=== PATIENT | male | born 1940 | race African-American/Black ===

== ENCOUNTER 2024-03-27 19:57 | Inpatient (IN) | payer MEDICARE, OTHER ==
[~2024-03-27] VITALS: Ht 182.9 cm; Wt 71.8 kg
[2024-03-27] MEDS ORDERED: ONDANSETRON HCL/PF 4 MG/2 ML VIAL ONE (20:45)
[2024-03-27 20:48] LABS: BASOPHILS % (AUTO) 0.3 % (0.0-2.0); HEMATOCRIT 37 % (39-51); HEMOGLOBIN 12.4 g/dL (13.5-17.5); LYMPHOCYTES # (AUTO) 0.2 K/uL (0.8-4.8); LYMPHOCYTES % (AUTO) 2.3 % (20.0-44.0); MEAN CORPUSCULAR HEMOGLOBIN 33 PG (26.0-33.0); MEAN CORPUSCULAR HGB CONC 33 g/dl (31.0-36.0); MEAN CORPUSCULAR VOLUME 99 fL (80-96); MONOCYTES # (AUTO) 0.3 K/uL (0.1-1.30); NEUTROPHILS # (AUTO) 6.2 K/uL (1.8-8.9); NEUTROPHILS % (AUTO) 92.4 % (43.0-81.0); PLATELET COUNT (AUTO) 180 K/uL (150-450); RED BLOOD CELL COUNT(AUTO) 3.77 MIL/uL (4.5-6.0); RED CELL DISTRIBUTION WIDTH 13.5 % (11.5-15.0); WHITE BLOOD COUNT (AUTO) 6.7 K/uL (4.3-11.0)
[2024-03-27] MEDS: IV NS 0.9% 1,000 ML BAG IV ONE (20:51)
[2024-03-27] MEDS: ONDANSETRON HCL/PF 4 MG/2 ML VIAL IVP ONE (20:51)
[2024-03-27 21:02] LABS: INR 1.5 (0.91-1.10); PARTIAL THROMBOPLASTIN TIME 29.1 SEC (24.3-34.3); PROTHROMBIN TIME 15.1 SECS (9.2-11.1)
[2024-03-27 21:05] LABS: ALANINE AMINOTRANSFERASE 20 U/L (12-78); ALBUMIN 2.9 g/dL (3.4-5.0); ALKALINE PHOSPHATASE 94 U/L (46-116); ASPARTATE AMINOTRANSFERASE 23 U/L (15-37); BILIRUBIN,DIRECT 0.2 mg/dL (0.0-0.2); BILIRUBIN,TOTAL 0.6 mg/dL (0.2-1.0); CALCIUM, SERUM 8.9 mg/dL (8.5-10.1); CARBON DIOXIDE 29 mmol/L (21-32); CHLORIDE 95 mmol/L (98-107); CREATININE 1.1 mg/dL (0.6-1.3); GLUCOSE 258 mg/dL (74-106); POTASSIUM 4.3 mmol/L (3.5-5.1); SODIUM SERUM 132 mmol/L (136-145); TOTAL PROTEIN, SERUM 7.5 g/dL (6.4-8.2); UREA NITROGEN, BLOOD 24 mg/dL (7-18)
[2024-03-27 21:09] LABS: LACTIC ACID 2.9 mmol/L (0.4-2.0)
[2024-03-27] MEDS ORDERED: PIPERACI/TAZO 3.375GM/D5W 50ML PB IV ONE (21:52)
[2024-03-27] MEDS: PIPERACILLIN /TAZOBACTAM 3.375 G in IV D5W 50 ML IV ONE (21:58)
[2024-03-27 22:11] LABS: APPEARANCE,URINE Cloudy (CLEAR); BILIRUBIN,URINE Negative (NEGATIVE); BLOOD, URINE Moderate Ery/uL (NEGATIVE); COLOR,URINE YELLOW (YELLOW); KETONES,URINE 15 mg/dL (NEGATIVE); LEUKOCYTE ESTERASE ,URINE Small (NEGATIVE); NITRITE, URINE Negative (NEGATIVE); PROTEIN,URINE 30 mg/dl (NEGATIVE); UGLUCOSE Negative (NEGATIVE)
[2024-03-27 22:38] LABS: ADD URINE CULTURE YES; BACTERIA,URINE Many /HPF (None Seen); SQUAMOUS EPITHELIAL CELL,UR Few /HPF (None Seen)
[2024-03-28] MEDS ORDERED: ACETAMINOPHEN 325 MG TABLET PO PRN
[2024-03-28] MEDS ORDERED: MAG HYDROX/AL HYDROX/SIMETH 30 ML UDC PO PRN
[2024-03-28] MEDS ORDERED: ONDANSETRON HCL/PF 4 MG/2 ML VIAL IVP PRN
[2024-03-28] MEDS ORDERED: DEXTROSE 50%-WATER 50 ML DISP.SYRIN IV PRN
[2024-03-28] MEDS ORDERED: MAGNESIUM HYDROXIDE 30 ML UDC PO PRN
[2024-03-28] MEDS ORDERED: Z GUARD REMEDY 4 OZ OINT TP PRN
[2024-03-28 00:55] VITALS: BP 118/65; TEMP 99.3; O2SAT 96
[2024-03-28] MEDS: PANTOPRAZOLE 40 MG VIAL IV SCH (01:25)
[2024-03-28] MEDS: ENOXAPARIN SODIUM 30 MG/0.3 ML DISP.SYRIN SQ SCH (01:25)
[2024-03-28] MEDS: BLOOD SUGAR DIAGNOSTIC 1 EACH STRIP IN SCH (01:35)
[2024-03-28] MEDS: INSULIN REGULAR, HUMAN 100 UNIT/ML 3 ML VIAL SQ PRN (01:36)
[2024-03-28 04:00] VITALS: BP 100/58; TEMP 98.7; O2SAT 98
[2024-03-28] MEDS ORDERED: PIPERACILLIN /TAZOBACTAM 3.375 G in IV D5W 50 ML IV SCH (05:00)
[2024-03-28] MEDS ORDERED: PIPERACI/TAZO 3.375GM/D5W 50ML PB IV ONE (05:13)
[2024-03-28] MEDS: PIPERACILLIN /TAZOBACTAM 3.375 G in IV D5W 50 ML IV SCH (05:14)
[2024-03-28] MEDS: IV NS 0.9% 1,000 ML IV PRN (07:03)
[2024-03-28 08:00] VITALS: BP 127/84; TEMP 98.4; O2SAT 97
[2024-03-28] MEDS ORDERED: NA P133E RC (08:02)
[2024-03-28] MEDS ORDERED: METF-440 GT (08:02)
[2024-03-28] MEDS ORDERED: MAGN400O6 GT (08:02)
[2024-03-28] MEDS ORDERED: CRAN3875 GT (08:02)
[2024-03-28] MEDS ORDERED: ATOR40TA GT (08:02)
[2024-03-28] MEDS ORDERED: BISA10SU11 RC (08:02)
[2024-03-28] MEDS ORDERED: APIX5TAB GT (08:02)
[2024-03-28] MEDS ORDERED: DOCU100C36 GT (08:02)
[2024-03-28] MEDS ORDERED: NUT.237L30 GT (08:02)
[2024-03-28] MEDS ORDERED: ACET325T53 GT (08:02)
[2024-03-28] MEDS ORDERED: DILT30TA2 GT (08:02)
[2024-03-28 08:17] LABS: HEMOGLOBIN 12.5 g/dL (13.5-17.5); LYMPHOCYTES # (AUTO) 0.6 K/uL (0.8-4.8); MEAN CORPUSCULAR VOLUME 100 fL (80-96)
[2024-03-28 08:23] LABS: BASOPHILS % (AUTO) 0.2 % (0.0-2.0); EOSINOPHILS % (AUTO) 0.1 % (0.0-6.0); HEMATOCRIT 39 % (39-51); LYMPHOCYTES % (AUTO) 7.1 % (20.0-44.0); MEAN CORPUSCULAR HEMOGLOBIN 33 PG (26.0-33.0); MEAN CORPUSCULAR HGB CONC 33 g/dl (31.0-36.0); MONOCYTES # (AUTO) 0.4 K/uL (0.1-1.30); MONOCYTES % (AUTO) 4.3 % (2.0-12.0); NEUTROPHILS # (AUTO) 7.5 K/uL (1.8-8.9); NEUTROPHILS % (AUTO) 88.3 % (43.0-81.0); PLATELET COUNT (AUTO) 142 K/uL (150-450); RED BLOOD CELL COUNT(AUTO) 3.84 MIL/uL (4.5-6.0); RED CELL DISTRIBUTION WIDTH 13.7 % (11.5-15.0); WHITE BLOOD COUNT (AUTO) 8.5 K/uL (4.3-11.0)
[2024-03-28 08:33] LABS: CALCIUM, SERUM 8.5 mg/dL (8.5-10.1); CARBON DIOXIDE 24 mmol/L (21-32); CHLORIDE 99 mmol/L (98-107); CREATININE 0.8 mg/dL (0.6-1.3); GLUCOSE 169 mg/dL (74-106); MAGNESIUM 1.8 mg/dL (1.8-2.4); PHOSPHORUS 3.3 mg/dL (2.5-4.9); POTASSIUM 4.7 mmol/L (3.5-5.1); SODIUM SERUM 135 mmol/L (136-145); UREA NITROGEN, BLOOD 23 mg/dL (7-18)
[2024-03-28 08:36] LABS: HDL CHOLESTEROL 54 mg/dL (40-60); LDL 29 mg/dL (0-99); TRIGLYCERIDES 41 mg/dL (30-150)
[2024-03-28 09:12] LABS: THYROID STIMULATING HORMONE 0.42 uIU/mL (0.358-3.74)
[2024-03-28 09:29] LABS: CHOLESTEROL 83 mg/dL (<200)
[2024-03-28] MEDS: PIPERACILLIN /TAZOBACTAM 3.375 G in IV D5W 100 ML IV SCH (09:29)
[2024-03-28] MEDS: GLUCERNA 1.2 1,000 ML BOTTLE NG PRN (09:58)
[2024-03-28] MEDS: DOCUSATE SODIUM 100 MG CAPSULE PO SCH (10:01)
[2024-03-28] MEDS: APIXABAN 5 MG TABLET GT SCH (10:01)
[2024-03-28] MEDS: DILTIAZEM HCL 30 MG TABLET GT SCH (10:01)
[2024-03-28 12:00] VITALS: BP 102/64; TEMP 97.8; O2SAT 95
[2024-03-28 16:00] VITALS: BP 102/68; TEMP 97.7; O2SAT 97
[2024-03-28] MEDS: DOCUSATE SODIUM LIQ 100 MG/10 ML UDC GT SCH (16:17)
[2024-03-28 20:00] VITALS: BP 106/65; TEMP 97.9; O2SAT 95
[2024-03-28] MEDS ORDERED: ENOXAPARIN SODIUM 40 MG/0.4 ML DISP.SYRIN SQ SCH (21:00)
[2024-03-28] MEDS: ATORVASTATIN 40 MG TABLET GT SCH (22:00)
[2024-03-29] VITALS: BP 108/71; TEMP 98.2; O2SAT 97
[2024-03-29 04:00] VITALS: BP 128/76; TEMP 98.6; O2SAT 97
[2024-03-29 07:35] LABS: BASOPHILS % (AUTO) 0.1 % (0.0-2.0); HEMATOCRIT 35 % (39-51); HEMOGLOBIN 11.7 g/dL (13.5-17.5); LYMPHOCYTES # (AUTO) 0.5 K/uL (0.8-4.8); LYMPHOCYTES % (AUTO) 6.3 % (20.0-44.0); MEAN CORPUSCULAR HEMOGLOBIN 33 PG (26.0-33.0); MEAN CORPUSCULAR HGB CONC 33 g/dl (31.0-36.0); MEAN CORPUSCULAR VOLUME 97 fL (80-96); MONOCYTES # (AUTO) 0.2 K/uL (0.1-1.30); MONOCYTES % (AUTO) 2.7 % (2.0-12.0); NEUTROPHILS # (AUTO) 7.2 K/uL (1.8-8.9); NEUTROPHILS % (AUTO) 90.9 % (43.0-81.0); PLATELET COUNT (AUTO) 146 K/uL (150-450); RED BLOOD CELL COUNT(AUTO) 3.61 MIL/uL (4.5-6.0); RED CELL DISTRIBUTION WIDTH 13.5 % (11.5-15.0); WHITE BLOOD COUNT (AUTO) 7.9 K/uL (4.3-11.0)
[2024-03-29 08:00] VITALS: BP 126/80; TEMP 98.5; O2SAT 95
[2024-03-29 08:11] LABS: CALCIUM, SERUM 8.7 mg/dL (8.5-10.1); CARBON DIOXIDE 32 mmol/L (21-32); CHLORIDE 101 mmol/L (98-107); CREATININE 0.9 mg/dL (0.6-1.3); GLUCOSE 172 mg/dL (74-106); MAGNESIUM 1.6 mg/dL (1.8-2.4); PHOSPHORUS 2.4 mg/dL (2.5-4.9); POTASSIUM 4.3 mmol/L (3.5-5.1); SODIUM SERUM 138 mmol/L (136-145); UREA NITROGEN, BLOOD 22 mg/dL (7-18)
[2024-03-29 08:24] LABS: URIC ACID 1.3 mg/dL (2.6-7.2)
[2024-03-29] MEDS: DILTIAZEM HCL 30 MG TABLET GT SCH (09:49)
[2024-03-29 12:00] VITALS: BP 108/70; TEMP 97.7; O2SAT 95
[2024-03-29 12:08] LABS: FOLIC ACID 14.9 ng/mL (>3.0)
[2024-03-29] MEDS: MAGNESIUM OXIDE 400 MG TABLET GT ONE (14:11)
[2024-03-29 16:00] VITALS: BP 105/63; TEMP 97.8; O2SAT 96
[2024-03-29] MEDS: NEUTRA PHOS 1 POWD.PACKET GT ONE (16:42)
[2024-03-29 20:00] VITALS: BP 101/66; TEMP 98.2; O2SAT 97
[2024-03-30] VITALS: BP 110/71; TEMP 98.4; O2SAT 97
[2024-03-30 04:00] VITALS: BP 111/67; TEMP 98.8; O2SAT 96
[2024-03-30 08:00] VITALS: BP 123/68; TEMP 98.8; O2SAT 96
[2024-03-30] MEDS: PANTOPRAZOLE 40 MG/PACK PACK GT SCH (09:22)
[2024-03-30 16:00] VITALS: BP 112/73; TEMP 98.6; O2SAT 96
[2024-03-30 20:00] VITALS: BP 107/64; TEMP 97.9; O2SAT 97
[2024-03-31] VITALS: BP 118/73; TEMP 98.2; O2SAT 95
[2024-03-31 04:00] VITALS: BP 135/83; TEMP 98.7; O2SAT 94
[2024-03-31 08:00] VITALS: BP 127/96; TEMP 98.1; O2SAT 96
[2024-03-31] MEDS: METRONIDAZOLE 500 MG TABLET PO SCH (13:19)
[2024-03-31 16:00] VITALS: BP 122/63; TEMP 97.9; O2SAT 97
[2024-03-31 18:15] LABS: BASOPHILS % (AUTO) 0.2 % (0.0-2.0); EOSINOPHILS % (AUTO) 0.4 % (0.0-6.0); HEMATOCRIT 31 % (39-51); HEMOGLOBIN 10.6 g/dL (13.5-17.5); LYMPHOCYTES # (AUTO) 0.6 K/uL (0.8-4.8); LYMPHOCYTES % (AUTO) 16.5 % (20.0-44.0); MEAN CORPUSCULAR HEMOGLOBIN 32 PG (26.0-33.0); MEAN CORPUSCULAR HGB CONC 34 g/dl (31.0-36.0); MEAN CORPUSCULAR VOLUME 96 fL (80-96); MONOCYTES # (AUTO) 0.2 K/uL (0.1-1.30); MONOCYTES % (AUTO) 5.9 % (2.0-12.0); NEUTROPHILS # (AUTO) 2.8 K/uL (1.8-8.9); PLATELET COUNT (AUTO) 133 K/uL (150-450); RED BLOOD CELL COUNT(AUTO) 3.26 MIL/uL (4.5-6.0); RED CELL DISTRIBUTION WIDTH 13.7 % (11.5-15.0); WHITE BLOOD COUNT (AUTO) 3.6 K/uL (4.3-11.0)
[2024-03-31 18:41] LABS: CARBON DIOXIDE 30 mmol/L (21-32); CHLORIDE 100 mmol/L (98-107); CREATININE 0.6 mg/dL (0.6-1.3); GLUCOSE 237 mg/dL (74-106); POTASSIUM 3.5 mmol/L (3.5-5.1); SODIUM SERUM 137 mmol/L (136-145); UREA NITROGEN, BLOOD 13 mg/dL (7-18)
[2024-03-31] MEDS: DOXYCYCLINE HYCLATE (100 MG) 100 MG TABLET PO SCH (21:09)
[2024-04-01] VITALS: BP 127/75; TEMP 97.9
[2024-04-01 06:47] LABS: BASOPHILS % (AUTO) 0.2 % (0.0-2.0); EOSINOPHILS % (AUTO) 0.4 % (0.0-6.0); HEMATOCRIT 33 % (39-51); LYMPHOCYTES # (AUTO) 0.7 K/uL (0.8-4.8); LYMPHOCYTES % (AUTO) 20.6 % (20.0-44.0); MEAN CORPUSCULAR HEMOGLOBIN 33 PG (26.0-33.0); MEAN CORPUSCULAR HGB CONC 33 g/dl (31.0-36.0); MEAN CORPUSCULAR VOLUME 97 fL (80-96); MONOCYTES # (AUTO) 0.3 K/uL (0.1-1.30); MONOCYTES % (AUTO) 7.4 % (2.0-12.0); NEUTROPHILS # (AUTO) 2.6 K/uL (1.8-8.9); NEUTROPHILS % (AUTO) 71.4 % (43.0-81.0); PLATELET COUNT (AUTO) 152 K/uL (150-450); RED CELL DISTRIBUTION WIDTH 13.6 % (11.5-15.0); WHITE BLOOD COUNT (AUTO) 3.6 K/uL (4.3-11.0)
[2024-04-01 07:01] LABS: CALCIUM, SERUM 7.7 mg/dL (8.5-10.1); CARBON DIOXIDE 33 mmol/L (21-32); CHLORIDE 100 mmol/L (98-107); CREATININE 0.6 mg/dL (0.6-1.3); GLUCOSE 188 mg/dL (74-106); POTASSIUM 3.4 mmol/L (3.5-5.1); SODIUM SERUM 137 mmol/L (136-145); UREA NITROGEN, BLOOD 10 mg/dL (7-18)
[2024-04-01 08:40] VITALS: BP 133/84; TEMP 98.6; O2SAT 96
[2024-04-01] MEDS: POTASSIUM CHLORIDE 20 MEQ POWDER PACKET NG SCH (10:52)
[2024-04-01] MEDS ORDERED: DILT30TA14 GT (12:02)
[2024-04-01] MEDS ORDERED: DOXY100T2 PO (12:02)
[2024-04-01] MEDS ORDERED: METR500T PO (12:02)
[2024-04-01 12:44] VITALS: BP 133/84
== END 2024-04-01 15:31 | DRG 871 ==
LOC: ER 20:06 → TELE1 03-28 00:20 → MEDSG1 03-30 09:29 → TELE1 03-30 12:43 → MEDSG1 03-30 23:31
PROVIDERS: ADMIT Nurse Practitioner Acute Care; ATTEND Internal Medicine
DX: A41.9 Sepsis, unspecified organism (principal); G93.41 Metabolic encephalopathy; J15.69 Pneumonia due to other Gram-negative bacteria; J69.0 Pneumonitis due to inhalation of food and vomit; E87.20 Acidosis, unspecified; E87.1 Hypo-osmolality and hyponatremia; N17.9 Acute kidney failure, unspecified; N39.0 Urinary tract infection, site not specified; D63.8 Anemia in other chronic diseases classified elsewhere; I25.10 Atherosclerotic heart disease of native coronary artery without angina pectoris; R65.20 Severe sepsis without septic shock; E11.9 Type 2 diabetes mellitus without complications; I10 Essential (primary) hypertension; I48.91 Unspecified atrial fibrillation; E78.5 Hyperlipidemia, unspecified; Z86.73 Personal history of transient ischemic attack (TIA), and cerebral infarction without residual deficits; F01.50 Vascular dementia, unspecified severity, without behavioral disturbance, psychotic disturbance, mood disturbance, and anxiety; M89.8X9 Other specified disorders of bone, unspecified site; B96.89 Other specified bacterial agents as the cause of diseases classified elsewhere; Y95 Nosocomial condition; Z79.01 Long term (current) use of anticoagulants
CPT/HCPCS: 36415; 70450-TC; 71045-TC; 71250-TC; 80048-TC; 80061-TC; 80076-TC; 81001; 82607-TC; 82962-TC; 83605-TC; 83735-TC; 83921; 84100-TC; 84425; 84443-TC; 84484-TC; 84550-TC; 85025-TC; 85730-TC; 87040-TC; 87081-TC; 87086-TC; 92526; 92611-TC; 93307-TC; 97110-TC; 97116-TC; 97530-TC; A4223; G0378; J1650; J1815; J2405; J2470; J2543; J7030; J7050; J7060

== ENCOUNTER 2024-07-01 00:32 | Emergency (ER) | payer MEDICARE, OTHER ==
[~2024-07-01] VITALS: Ht 188 cm; Wt 74.8 kg
[~2024-07-01 00:32] MED LIST: ACET325T53 GT; APIX5TAB GT; ATOR40TA GT; BISA10SU11 RC; CRAN3875 GT; DILT30TA14 GT; DOCU100C36 GT; DOXY100T2 PO; MAGN400O6 GT; METF-440 GT; METR500T PO; NA P133E RC; NUT.237L30 GT
[2024-07-01 00:49] VITALS: TEMP 98.8
[2024-07-01 01:25] LABS: BASOPHILS % (AUTO) 0.3 % (0.0-2.0); EOSINOPHILS # (AUTO) 0.3 K/uL (0.0-0.7); EOSINOPHILS % (AUTO) 6.1 % (0.0-6.0); HEMATOCRIT 37 % (39-51); HEMOGLOBIN 12.2 g/dL (13.5-17.5); LYMPHOCYTES # (AUTO) 1.3 K/uL (0.8-4.8); LYMPHOCYTES % (AUTO) 26.5 % (20.0-44.0); MEAN CORPUSCULAR HEMOGLOBIN 32 PG (26.0-33.0); MEAN CORPUSCULAR HGB CONC 33 g/dl (31.0-36.0); MEAN CORPUSCULAR VOLUME 96 fL (80-96); MONOCYTES # (AUTO) 0.4 K/uL (0.1-1.30); NEUTROPHILS % (AUTO) 60.1 % (43.0-81.0); PLATELET COUNT (AUTO) 193 K/uL (150-450); RED BLOOD CELL COUNT(AUTO) 3.81 MIL/uL (4.5-6.0); RED CELL DISTRIBUTION WIDTH 16.3 % (11.5-15.0)
[2024-07-01 01:35] LABS: CALCIUM, SERUM 8.8 mg/dL (8.5-10.1); CARBON DIOXIDE 35 mmol/L (21-32); CHLORIDE 99 mmol/L (98-107); CREATININE 0.6 mg/dL (0.6-1.3); GLUCOSE 119 mg/dL (74-106); POTASSIUM 4.1 mmol/L (3.5-5.1); SODIUM SERUM 136 mmol/L (136-145); UREA NITROGEN, BLOOD 22 mg/dL (7-18)
[2024-07-01 01:43] LABS: INR 1.32 (0.91-1.10); PARTIAL THROMBOPLASTIN TIME 31.3 SEC (24.3-34.3); PROTHROMBIN TIME 13.7 SECS (9.2-11.1)
[2024-07-01 01:48] LABS: ALANINE AMINOTRANSFERASE 23 U/L (12-78); ALBUMIN 2.8 g/dL (3.4-5.0); ALKALINE PHOSPHATASE 111 U/L (46-116); ASPARTATE AMINOTRANSFERASE 21 U/L (15-37); BILIRUBIN,TOTAL 0.6 mg/dL (0.2-1.0); NT-PRO BNP 601 pg/mL (0-125); TOTAL PROTEIN, SERUM 6.8 g/dL (6.4-8.2)
[2024-07-01 03:19] LABS: APPEARANCE,URINE CLEAR (CLEAR); BILIRUBIN,URINE NEGATIVE (NEGATIVE); BLOOD, URINE NEGATIVE Ery/uL (NEGATIVE); COLOR,URINE YELLOW (YELLOW); KETONES,URINE NEGATIVE (NEGATIVE); LEUKOCYTE ESTERASE ,URINE NEGATIVE (NEGATIVE); NITRITE, URINE POSITIVE (NEGATIVE); PROTEIN,URINE NEGATIVE (NEGATIVE); UGLUCOSE NEGATIVE (NEGATIVE)
[2024-07-01] MEDS ORDERED: Z GUARD REMEDY 4 OZ OINT TP PRN (04:30)
[2024-07-01] MEDS ORDERED: ACETAMINOPHEN 325 MG TABLET PO PRN (04:30)
[2024-07-01] MEDS ORDERED: ONDANSETRON HCL/PF 4 MG/2 ML VIAL IVP PRN (04:30)
[2024-07-01 04:42] LABS: RBC,URINE NONE SEEN /HPF (0-2)
[2024-07-01 04:43] LABS: ADD URINE CULTURE YES; BACTERIA,URINE Many /HPF (None Seen); SQUAMOUS EPITHELIAL CELL,UR Rare /HPF (None Seen); WBC,URINE 0-2 /HPF (0-3)
[2024-07-01] MEDS ORDERED: PANTOPRAZOLE 40 MG VIAL ONE (08:31)
[2024-07-01] MEDS: PANTOPRAZOLE 40 MG VIAL IV SCH (08:38)
[2024-07-01] MEDS: IV NS 0.9% 1,000 ML IV PRN (08:38)
[2024-07-01] MEDS ORDERED: ACET325T53 GT (08:49)
[2024-07-01] MEDS ORDERED: DILT30TA2 GT (08:49)
[2024-07-01] MEDS ORDERED: MULT-213 GT (08:49)
[2024-07-01] MEDS ORDERED: AMIN30LI66 GT (08:49)
[2024-07-01] MEDS ORDERED: TRAM50TA2 GT (08:49)
[2024-07-01] MEDS ORDERED: ASCO500T10 GT (08:49)
[2024-07-01] MEDS ORDERED: IBUP-1955 GT (08:49)
[2024-07-01 16:00] VITALS: BP 133/78; O2SAT 96
== END 2024-07-01 17:05 | disposition short-term general hospital (02) ==
LOC: ER 00:36 → UNDOADMIN 05:22 → TRANSITION 05:22
DX: K92.2 Gastrointestinal hemorrhage, unspecified (principal); E11.9 Type 2 diabetes mellitus without complications; E78.5 Hyperlipidemia, unspecified; F03.90 Unspecified dementia, unspecified severity, without behavioral disturbance, psychotic disturbance, mood disturbance, and anxiety; I10 Essential (primary) hypertension; I48.91 Unspecified atrial fibrillation
CPT/HCPCS: 99285; 74176; 96374; 71045; 96361; 93005; 85025; 85610; 85730; 81001; 36415; 80053; 84484; 83880; 85027; J7030; J2470; A4223; G0378; J2405

== ENCOUNTER 2024-12-20 04:13 | Inpatient (IN) | payer MEDICARE, OTHER ==
[~2024-12-20] VITALS: Ht 193 cm; Wt 70.4 kg
[~2024-12-20 04:13] MED LIST changes: +AMIN30LI66 GT; -APIX5TAB GT; +ASCO500T10 GT; -DILT30TA14 GT; +DILT30TA2 GT; -DOXY100T2 PO; +IBUP-1955 GT; -METR500T PO; +MULT-213 GT; +TRAM50TA2 GT
[2024-12-20 04:35] VITALS: O2SAT 94
[2024-12-20] MEDS ORDERED: AZITHROMYCIN 500 MG VIAL ONE (04:37)
[2024-12-20] MEDS ORDERED: VANCOMYCIN 1 GM /D5W 250 ML PB IV ONE (04:38)
[2024-12-20] MEDS ORDERED: PIPERACI/TAZO 3.375GM/D5W 50ML PB IV ONE (04:38)
[2024-12-20] MEDS: PIPERACILLIN /TAZOBACTAM 3.375 G in IV D5W 50 ML IV ONE (04:41)
[2024-12-20] MEDS: IV NS 0.9% 1,000 ML BAG IV ONE (04:52)
[2024-12-20 05:09] LABS: PLATELET COUNT (AUTO) 263 K/uL (150-450); RED BLOOD CELL COUNT(AUTO) 4.26 MIL/uL (4.5-6.0); RED CELL DISTRIBUTION WIDTH 15.9 % (11.5-15.0); WHITE BLOOD COUNT (AUTO) 5.1 K/uL (4.3-11.0)
[2024-12-20] MEDS: AZITHROMYCIN 500 MG in IV D5W 250 ML IV ONE (05:10)
[2024-12-20 05:17] LABS: INR 1.31 (0.91-1.10)
[2024-12-20 05:31] LABS: APPEARANCE,URINE CLEAR (CLEAR); BLOOD, URINE TRACE-INTA Ery/uL (NEGATIVE); LEUKOCYTE ESTERASE ,URINE NEGATIVE (NEGATIVE); NITRITE, URINE NEGATIVE (NEGATIVE); UGLUCOSE NEGATIVE (NEGATIVE)
[2024-12-20 05:55] LABS: LACTIC ACID 6.5 mmol/L (0.4-2.0)
[2024-12-20 05:55] LABS: ABG BASE EXCESS -2.3 mmol/L (-2.0-3.0); ABG OXYGEN SATURATION 94.7 % (94.0-98.0); ABG PCO2 41.2 mmHg (35.0-48.0); ABG PH 7.364 (7.350-7.450); ABG PO2 81.7 mmHg (83.0-108.0); ABG TOTAL HEMOGLOBIN 12.0 G/dL (13.5-17.5); FLOW, BLOOD GAS 15.00 L/min (0.00-30.00); SITE, ABG LEFT RADIAL
[2024-12-20] MEDS ORDERED: ONDANSETRON HCL/PF 4 MG/2 ML VIAL IVP PRN (06:00)
[2024-12-20] MEDS ORDERED: MAG HYDROX/AL HYDROX/SIMETH 30 ML UDC PO PRN (06:00)
[2024-12-20] MEDS ORDERED: Z GUARD REMEDY 4 OZ OINT TP PRN (06:00)
[2024-12-20] MEDS ORDERED: ACETAMINOPHEN 325 MG TABLET PO PRN (06:00)
[2024-12-20] MEDS ORDERED: MAGNESIUM HYDROXIDE 30 ML UDC PO PRN (06:00)
[2024-12-20 06:05] LABS: CALCIUM, SERUM 9.2 mg/dL (8.5-10.1); CREATININE 1.0 mg/dL (0.6-1.3); SODIUM SERUM 141 mmol/L (136-145); UREA NITROGEN, BLOOD 41 mg/dL (7-18)
[2024-12-20 06:11] LABS: ASPARTATE AMINOTRANSFERASE 38 U/L (15-37); TOTAL PROTEIN, SERUM 7.8 g/dL (6.4-8.2)
[2024-12-20 06:14] LABS: ADD URINE CULTURE NO; SQUAMOUS EPITHELIAL CELL,UR Few /HPF (None Seen)
[2024-12-20] MEDS: VANCOMYCIN 1 GM in IV D5W 250 ML IV ONE (06:15)
[2024-12-20] MEDS ORDERED: APIX5TAB4 GT (06:18)
[2024-12-20] MEDS ORDERED: PANT40TA49 PO (06:18)
[2024-12-20] MEDS ORDERED: ZINC1CAP2 PO (06:18)
[2024-12-20] MEDS ORDERED: GABA-532 PO (06:18)
[2024-12-20] MEDS ORDERED: DILTIAZEM HCL 30 MG TABLET ONE ×2 (06:29→10:13)
[2024-12-20] MEDS ORDERED: DEXTROSE 50%-WATER 50 ML DISP.SYRIN IV PRN (06:30)
[2024-12-20] MEDS ORDERED: BISACODYL SUPP (10 MG) 10 MG/SUPP.RECT SUPP.RECT RC PRN (06:30)
[2024-12-20] MEDS ORDERED: DOSING PER PHARMACY-VANCOMYCIN IV XX PRN (06:30)
[2024-12-20] MEDS: DILTIAZEM HCL 30 MG TABLET GT SCH (06:40)
[2024-12-20] MEDS: BLOOD SUGAR DIAGNOSTIC 1 EACH STRIP IN SCH (08:30)
[2024-12-20] MEDS: PROSOURCE / PROSTAT (PYXIS) 30 ML UDC GT SCH (09:00)
[2024-12-20] MEDS: DOCUSATE SODIUM 100 MG CAPSULE PO SCH (09:00)
[2024-12-20] MEDS ORDERED: MULTIVITAMINS,THERAGRAN 1 UDTAB TABLET ONE (10:12)
[2024-12-20] MEDS ORDERED: GABAPENTIN 100 MG CAPSULE ONE (10:13)
[2024-12-20] MEDS ORDERED: APIXABAN 5 MG TABLET ONE (10:13)
[2024-12-20] MEDS: MULTIVIT W/MINERALS 1 TAB TABLET GT SCH (10:15)
[2024-12-20] MEDS: GABAPENTIN 100 MG CAPSULE PO SCH (10:20)
[2024-12-20] MEDS: APIXABAN 5 MG TABLET GT SCH (10:20)
[2024-12-20] MEDS: VANCOMYCIN 750 MG in IV D5W 250 ML IV SCH (10:25)
[2024-12-20] MEDS: PIPERACILLIN /TAZOBACTAM 3.375 G in IV D5W 100 ML IV SCH (11:30)
[2024-12-20] MEDS ORDERED: PIPERACILLIN /TAZOBACTAM 3.375 G in IV D5W 50 ML IV SCH (13:00)
[2024-12-20 16:00] VITALS: BP 104/76; TEMP 98.6
[2024-12-20] MEDS: INSULIN REGULAR, HUMAN 100 UNIT/ML 3 ML VIAL SQ PRN (16:54)
[2024-12-20] MEDS: ASCORBIC ACID 500 MG TABLET GT SCH (17:09)
[2024-12-20] MEDS: ZINC SULFATE 220 MG CAPSULE PO SCH (17:09)
[2024-12-20] MEDS ORDERED: PROSOURCE / PROSTAT (PYXIS) 30 ML UDC GT SCH (18:00)
[2024-12-20] MEDS: GLUCERNA 1.2 1,000 ML BOTTLE NG PRN (18:32)
[2024-12-20 20:00] VITALS: BP 96/65; TEMP 98.6; O2SAT 97
[2024-12-20] MEDS: ATORVASTATIN 40 MG TABLET GT SCH (22:39)
[2024-12-21] VITALS: BP 108/72; TEMP 97.7; O2SAT 97
[2024-12-21 04:00] VITALS: BP 112/75; TEMP 97.8; O2SAT 98
[2024-12-21 08:00] VITALS: BP 92/61; TEMP 98; O2SAT 100
[2024-12-21 08:01] LABS: CALCIUM, SERUM 9.0 mg/dL (8.5-10.1); CREATININE 0.8 mg/dL (0.6-1.3); PHOSPHORUS 2.8 mg/dL (2.5-4.9); SODIUM SERUM 142.0 mmol/L (136-145); UREA NITROGEN, BLOOD 39.0 mg/dL (7-18)
[2024-12-21 08:05] LABS: PLATELET COUNT (AUTO) 195 K/uL (150-450); RED BLOOD CELL COUNT(AUTO) 3.52 MIL/uL (4.5-6.0); RED CELL DISTRIBUTION WIDTH 16.3 % (11.5-15.0); WHITE BLOOD COUNT (AUTO) 8.9 K/uL (4.3-11.0)
[2024-12-21] MEDS: AZITHROMYCIN 500 MG in IV D5W 250 ML IV SCH (09:15)
[2024-12-21 09:16] LABS: LYMPHOCYTES % (MANUAL) 9 % (16-48); MONOCYTES % (MANUAL) 4 % (0-11.0); NEUTROPHILS % (MANUAL) 87 (42-76); PLATELET ESTIMATE ADEQUATE
[2024-12-21 12:00] VITALS: BP 107/55; TEMP 98.1; O2SAT 100
[2024-12-21] MEDS: DIGOXIN INJ 0.5 MG/2 ML AMPUL IV SCH (13:01)
[2024-12-21 16:00] VITALS: BP 101/66; TEMP 98.5; O2SAT 100
[2024-12-21] MEDS: DOXYCYCLINE 100 MG in IV D5W 100 ML IV SCH (21:20)
[2024-12-21] MEDS: PERMETHRIN 5% CRM 60 GM TUBE TP ONE (21:22)
[2024-12-21] MEDS: IVERMECTIN 3 MG TABLET PO ONE (21:23)
[2024-12-21] MEDS: TRIAMCINOLONE ACETONIDE 0.1% CR 15 GM TUBE TP SCH (21:23)
[2024-12-21 22:00] VITALS: BP 102/66; TEMP 98.2; O2SAT 98
[2024-12-22] VITALS: BP 103/66; TEMP 98.5; O2SAT 98
[2024-12-22 04:00] VITALS: BP 100/66; TEMP 98.2; O2SAT 98
[2024-12-22] MEDS: MEROPENEM 1 G in IV NS 0.9% 100 ML IV SCH (05:30)
[2024-12-22 07:13] LABS: PLATELET COUNT (AUTO) 190 K/uL (150-450); RED BLOOD CELL COUNT(AUTO) 3.49 MIL/uL (4.5-6.0); RED CELL DISTRIBUTION WIDTH 15.4 % (11.5-15.0); WHITE BLOOD COUNT (AUTO) 9.0 K/uL (4.3-11.0)
[2024-12-22 07:19] LABS: CALCIUM, SERUM 9.5 mg/dL (8.5-10.1); CREATININE 0.7 mg/dL (0.6-1.3); PHOSPHORUS 2.4 mg/dL (2.5-4.9); SODIUM SERUM 145.0 mmol/L (136-145); UREA NITROGEN, BLOOD 28.0 mg/dL (7-18)
[2024-12-22 08:00] VITALS: BP 117/72; TEMP 98.1; O2SAT 100
[2024-12-22] MEDS: LORATADINE 10 MG TABLET PO SCH (08:54)
[2024-12-22] MEDS: POTASSIUM CHLORIDE 20 MEQ POWDER PACKET NG SCH (10:00)
[2024-12-22 12:00] VITALS: BP 114/66; TEMP 98.2; O2SAT 100
[2024-12-22 16:00] VITALS: BP 125/88; TEMP 97.9; O2SAT 98
[2024-12-22] MEDS: NEUTRA PHOS 1 POWD.PACKET NG ONE (16:14)
[2024-12-22 20:00] VITALS: BP 109/84; TEMP 98.4; O2SAT 99
[2024-12-23] VITALS: BP 99/61; TEMP 98.2; O2SAT 98
[2024-12-23 04:00] VITALS: BP 111/64; TEMP 97.7; O2SAT 100
[2024-12-23 06:42] LABS: PLATELET COUNT (AUTO) 174 K/uL (150-450); RED BLOOD CELL COUNT(AUTO) 3.46 MIL/uL (4.5-6.0); RED CELL DISTRIBUTION WIDTH 15.6 % (11.5-15.0); WHITE BLOOD COUNT (AUTO) 8.3 K/uL (4.3-11.0)
[2024-12-23 08:00] VITALS: BP 102/71; TEMP 98.6; O2SAT 98
[2024-12-23 08:06] LABS: CALCIUM, SERUM 9.6 mg/dL (8.5-10.1); CREATININE 0.7 mg/dL (0.6-1.3); PHOSPHORUS 3.1 mg/dL (2.5-4.9); SODIUM SERUM 146.0 mmol/L (136-145); UREA NITROGEN, BLOOD 28.0 mg/dL (7-18)
[2024-12-23] MEDS ORDERED: Magnesium 1GM/D5W 100ML PREMIX 100 ML IV SCH (09:30)
[2024-12-23] MEDS ORDERED: MAGNESIUM OXIDE 400 MG TABLET NG ONE (10:00)
[2024-12-23] MEDS: Magnesium 1GM/D5W 100ML PREMIX 100 ML IV SCH (10:51)
[2024-12-23 12:00] VITALS: BP 100/55; TEMP 98.1; O2SAT 99
[2024-12-23 16:00] VITALS: BP 102/60; TEMP 98.4; O2SAT 99
[2024-12-23 20:00] VITALS: BP 103/64; TEMP 98.8; O2SAT 98
[2024-12-23] MEDS: DOXYCYCLINE HYCLATE (100 MG) 100 MG TABLET GT SCH (21:37)
[2024-12-24] VITALS: BP 110/74; TEMP 98.6; O2SAT 97
[2024-12-24 04:00] VITALS: BP 110/72; TEMP 98.1; O2SAT 96
[2024-12-24 06:55] LABS: PLATELET COUNT (AUTO) 185 K/uL (150-450); RED BLOOD CELL COUNT(AUTO) 3.68 MIL/uL (4.5-6.0); RED CELL DISTRIBUTION WIDTH 15.8 % (11.5-15.0); WHITE BLOOD COUNT (AUTO) 8.3 K/uL (4.3-11.0)
[2024-12-24 07:00] LABS: CALCIUM, SERUM 9.2 mg/dL (8.5-10.1); CREATININE 0.7 mg/dL (0.6-1.3); PHOSPHORUS 2.6 mg/dL (2.5-4.9); SODIUM SERUM 147.0 mmol/L (136-145); UREA NITROGEN, BLOOD 26.0 mg/dL (7-18)
[2024-12-24 08:00] VITALS: BP 102/71; TEMP 98.6; O2SAT 98
[2024-12-24 09:10] LABS: LYMPHOCYTES % (MANUAL) 5 % (16-48); MONOCYTES % (MANUAL) 5 % (0-11.0); NEUTROPHILS % (MANUAL) 90 (42-76); PLATELET ESTIMATE ADEQUATE
[2024-12-24 12:00] VITALS: BP 111/71; TEMP 98.1; O2SAT 93
[2024-12-24] MEDS: METFORMIN 500 MG TABLET GT SCH (12:55)
[2024-12-24 16:00] VITALS: BP 106/63; TEMP 98.4; O2SAT 97
[2024-12-24 20:00] VITALS: BP 115/69; TEMP 98.2; O2SAT 94
[2024-12-24] MEDS: IVERMECTIN 3 MG TABLET PO ONE (21:09)
[2024-12-24] MEDS: PERMETHRIN 5% CRM 60 GM TUBE TP ONE (21:35)
[2024-12-25 00:03] VITALS: BP 111/63; TEMP 98.1; O2SAT 95
[2024-12-25 04:00] VITALS: BP 113/66; TEMP 98.1; O2SAT 94
[2024-12-25 06:40] LABS: PLATELET COUNT (AUTO) 189 K/uL (150-450); RED BLOOD CELL COUNT(AUTO) 3.93 MIL/uL (4.5-6.0); RED CELL DISTRIBUTION WIDTH 15.8 % (11.5-15.0); WHITE BLOOD COUNT (AUTO) 7.5 K/uL (4.3-11.0)
[2024-12-25 06:53] LABS: CALCIUM, SERUM 9.4 mg/dL (8.5-10.1); CREATININE 0.7 mg/dL (0.6-1.3); PHOSPHORUS 2.4 mg/dL (2.5-4.9); SODIUM SERUM 146 mmol/L (136-145); UREA NITROGEN, BLOOD 31 mg/dL (7-18)
[2024-12-25 08:00] VITALS: BP 130/70; TEMP 97.5; O2SAT 95
[2024-12-25 12:00] VITALS: BP 113/67; TEMP 98.1; O2SAT 100
[2024-12-25 12:58] VITALS: BP 113/67
[2024-12-25] MEDS ORDERED: NEUTRA PHOS 1 POWD.PACKET GT ONE (16:00)
== END 2024-12-25 14:42 | DRG 871 ==
LOC: ER 04:14 → TELE IN 06:36 → TELE1 13:24 → TELE-TD 14:17 → TELE1 12-21 10:52 → MEDSG1 12-25 10:03
PROVIDERS: ADMIT Student in an Organized Health Care Education/Training Program; ATTEND Nurse Practitioner Family
DX: A41.9 Sepsis, unspecified organism (principal); G92.8 Other toxic encephalopathy; L89.153 Pressure ulcer of sacral region, stage 3; J69.0 Pneumonitis due to inhalation of food and vomit; J96.01 Acute respiratory failure with hypoxia; E44.1 Mild protein-calorie malnutrition; N17.9 Acute kidney failure, unspecified; N39.0 Urinary tract infection, site not specified; I12.9 Hypertensive chronic kidney disease with stage 1 through stage 4 chronic kidney disease, or unspecified chronic kidney disease; N18.9 Chronic kidney disease, unspecified; F03.90 Unspecified dementia, unspecified severity, without behavioral disturbance, psychotic disturbance, mood disturbance, and anxiety; I48.91 Unspecified atrial fibrillation; Z66 Do not resuscitate; E78.5 Hyperlipidemia, unspecified; I25.10 Atherosclerotic heart disease of native coronary artery without angina pectoris; I25.2 Old myocardial infarction; L29.9 Pruritus, unspecified; L85.3 Xerosis cutis; L98.9 Disorder of the skin and subcutaneous tissue, unspecified; E11.22 Type 2 diabetes mellitus with diabetic chronic kidney disease; E11.40 Type 2 diabetes mellitus with diabetic neuropathy, unspecified; E11.51 Type 2 diabetes mellitus with diabetic peripheral angiopathy without gangrene; I70.25 Atherosclerosis of native arteries of other extremities with ulceration; L98.499 Non-pressure chronic ulcer of skin of other sites with unspecified severity; Z79.84 Long term (current) use of oral hypoglycemic drugs; Z79.01 Long term (current) use of anticoagulants; Y95 Nosocomial condition; R13.10 Dysphagia, unspecified; Z93.1 Gastrostomy status; E86.0 Dehydration; D64.9 Anemia, unspecified; B96.20 Unspecified Escherichia coli [E. coli] as the cause of diseases classified elsewhere; M19.90 Unspecified osteoarthritis, unspecified site; B86 Scabies; Z78.9 Other specified health status; Z86.73 Personal history of transient ischemic attack (TIA), and cerebral infarction without residual deficits; Z87.891 Personal history of nicotine dependence; F09 Unspecified mental disorder due to known physiological condition
CPT/HCPCS: 31720; 36415; 36600; 71045-TC; 80048-TC; 80076-TC; 80202-TC; 81001; 82803-TC; 82962-TC; 83605-TC; 83735-TC; 84100-TC; 84443-TC; 84484-TC; 85025-TC; 85027-TC; 85730-TC; 86850-TC; 87040-TC; 87081-TC; 87086-TC; 87186-TC; 92526; 92611; 93307-TC; A4223; A6213; G0378; J0456; J1160; J1815; J2185; J2543; J3373; J3374; J3475; J3490; J7030; J7050; J7060

== ENCOUNTER 2025-03-31 18:20 | Inpatient (IN) | payer MEDICARE, OTHER ==
[~2025-03-31] VITALS: Ht 188 cm; Wt 70.3 kg
[~2025-03-31 18:20] MED LIST changes: +APIX5TAB4 GT; +GABA-532 PO; +PANT40TA49 PO; +ZINC1CAP2 PO
[2025-03-31] MEDS ORDERED: PIPERACI/TAZO 3.375GM/D5W 50ML PB IV ONE (18:43)
[2025-03-31] MEDS: IV NS 0.9% 1,000 ML BAG IV ONE (18:48)
[2025-03-31] MEDS: PIPERACILLIN /TAZOBACTAM 3.375 G in IV D5W 50 ML IV ONE (18:50)
[2025-03-31 18:53] LABS: PLATELET COUNT (AUTO) 184 K/uL (150-450); RED BLOOD CELL COUNT(AUTO) 4.28 MIL/uL (4.5-6.0); RED CELL DISTRIBUTION WIDTH 16.3 % (11.5-15.0); WHITE BLOOD COUNT (AUTO) 4.6 K/uL (4.3-11.0)
[2025-03-31] MEDS ORDERED: ACETAMINOPHEN ES 500 MG TABLET ONE (18:56)
[2025-03-31 18:59] LABS: CALCIUM, SERUM 9.1 mg/dL (8.5-10.1); CREATININE 0.8 mg/dL (0.6-1.3); SODIUM SERUM 138 mmol/L (136-145); UREA NITROGEN, BLOOD 26 mg/dL (7-18)
[2025-03-31 19:05] LABS: ASPARTATE AMINOTRANSFERASE 19 U/L (15-37); TOTAL PROTEIN, SERUM 7.7 g/dL (6.4-8.2)
[2025-03-31 19:07] LABS: INR 1.33 (0.91-1.10)
[2025-03-31 19:08] LABS: LACTIC ACID 2.9 mmol/L (0.4-2.0)
[2025-03-31] MEDS: ACETAMINOPHEN ES 500 MG TABLET PO ONE (19:10)
[2025-03-31] MEDS ORDERED: VANCOMYCIN 1 GM /D5W 250 ML PB IV ONE (19:20)
[2025-03-31] MEDS: VANCOMYCIN 1 GM in IV D5W 250 ML IV ONE (19:25)
[2025-03-31 19:31] LABS: APPEARANCE,URINE CLEAR (CLEAR); BLOOD, URINE 2+ Ery/uL (NEGATIVE); LEUKOCYTE ESTERASE ,URINE TRACE (NEGATIVE); NITRITE, URINE POSITIVE (NEGATIVE); UGLUCOSE NEGATIVE (NEGATIVE)
[2025-03-31 19:50] LABS: ADD URINE CULTURE YES; SQUAMOUS EPITHELIAL CELL,UR 0-2 /HPF (None Seen)
[2025-03-31] MEDS ORDERED: MAGNESIUM HYDROXIDE 30 ML UDC PO PRN (21:00)
[2025-03-31] MEDS ORDERED: DOSING PER PHARMACY-VANCOMYCIN IV XX PRN (21:00)
[2025-03-31] MEDS ORDERED: DOSING PER PHARMACY-ZOSYN IV 1 EA EA XX PRN (21:00)
[2025-03-31] MEDS ORDERED: ONDANSETRON HCL/PF 4 MG/2 ML VIAL IVP PRN (21:00)
[2025-03-31] MEDS ORDERED: MAG HYDROX/AL HYDROX/SIMETH 30 ML UDC PO PRN (21:00)
[2025-03-31] MEDS ORDERED: DEXTROSE 50%-WATER 50 ML DISP.SYRIN IV PRN (21:00)
[2025-03-31] MEDS ORDERED: ACETAMINOPHEN 325 MG TABLET MC PRN (21:00)
[2025-03-31] MEDS ORDERED: IV NS 0.9% 1,000 ML IV SCH (21:00)
[2025-04-01] VITALS: BP 107/63; TEMP 100.6; O2SAT 93
[2025-04-01] MEDS: BLOOD SUGAR DIAGNOSTIC 1 EACH STRIP IN SCH (00:07)
[2025-04-01] MEDS: INSULIN REGULAR, HUMAN 100 UNIT/ML 3 ML VIAL SQ PRN (00:17)
[2025-04-01] MEDS ORDERED: INSULIN REGULAR, HUMAN 100 UNIT/ML 10 ML VIAL ONE (02:11)
[2025-04-01] MEDS ORDERED: PIPERACI/TAZO 3.375GM/D5W 50ML PB IV ONE (03:53)
[2025-04-01] MEDS: PIPERACILLIN /TAZOBACTAM 3.375 G in IV D5W 50 ML IV ONE (03:59)
[2025-04-01 04:00] VITALS: BP 102/64; TEMP 97.9; O2SAT 100
[2025-04-01] MEDS ORDERED: BISACODYL SUPP (10 MG) 10 MG/SUPP.RECT SUPP.RECT RC PRN (06:30)
[2025-04-01 08:00] VITALS: BP 91/64; TEMP 99.1; O2SAT 100
[2025-04-01] MEDS: DILTIAZEM HCL 30 MG TABLET GT SCH (08:33)
[2025-04-01 08:34] LABS: PLATELET COUNT (AUTO) 156 K/uL (150-450); RED BLOOD CELL COUNT(AUTO) 3.71 MIL/uL (4.5-6.0); RED CELL DISTRIBUTION WIDTH 16.0 % (11.5-15.0); WHITE BLOOD COUNT (AUTO) 7.4 K/uL (4.3-11.0)
[2025-04-01] MEDS: ENOXAPARIN SODIUM 40 MG/0.4 ML DISP.SYRIN SQ SCH (08:34)
[2025-04-01] MEDS: MULTIVIT W/MINERALS 1 TAB TABLET GT SCH (08:34)
[2025-04-01] MEDS: DOCUSATE SODIUM 100 MG CAPSULE PO SCH (08:34)
[2025-04-01] MEDS: PANTOPRAZOLE 40 MG VIAL IV SCH (08:34)
[2025-04-01] MEDS: GABAPENTIN 100 MG CAPSULE PO SCH (08:34)
[2025-04-01] MEDS: VANCOMYCIN 500 MG in IV D5W 100ml IV ONE (09:00)
[2025-04-01 09:32] LABS: CALCIUM, SERUM 8.5 mg/dL (8.5-10.1); CREATININE 0.7 mg/dL (0.6-1.3); PHOSPHORUS 2.5 mg/dL (2.5-4.9); SODIUM SERUM 139.0 mmol/L (136-145); UREA NITROGEN, BLOOD 26.0 mg/dL (7-18)
[2025-04-01] MEDS: PROSOURCE / PROSTAT (PYXIS) 30 ML UDC GT SCH (09:50)
[2025-04-01] MEDS: ZOSYN IVPB 3.375 G in IV D5W 50ml IV SCH (10:51)
[2025-04-01] MEDS: HYDROCORTISONE SOD SUCCINATE 100 MG/2 ML VIAL IV SCH (10:54)
[2025-04-01 12:00] VITALS: BP 100/63; TEMP 98.2; O2SAT 100
[2025-04-01] MEDS: IV NS 0.9% 1,000 ML IV PRN (12:23)
[2025-04-01] MEDS ORDERED: GLUCERNA 1.5 1,000 ML BOTTLE NG PRN (14:00)
[2025-04-01 16:00] VITALS: BP 101/67; TEMP 97.9; O2SAT 99
[2025-04-01] MEDS: GLUCERNA 1.2 1,000 ML BOTTLE NG PRN (17:48)
[2025-04-01] MEDS: ZINC SULFATE 220 MG CAPSULE PO SCH (17:51)
[2025-04-01] MEDS ORDERED: Medication Not On Formulary EA (Cran/Vitc/Mannose/Inulin/Brom (Uti-Stat Liquid) 30 ML) GT SCH (18:00)
[2025-04-01 20:00] VITALS: BP 101/67; TEMP 97.9; O2SAT 99
[2025-04-01] MEDS: VANCOMYCIN 750 MG in IV D5W 250 ML IV SCH (21:22)
[2025-04-01] MEDS ORDERED: ATORVASTATIN 40 MG TABLET GT SCH (22:00)
[2025-04-02] VITALS: BP 99/62; TEMP 98; O2SAT 96
[2025-04-02 04:00] VITALS: BP 98/68; TEMP 98.2; O2SAT 96
[2025-04-02 08:00] VITALS: BP 97/66; TEMP 97.3; O2SAT 98
[2025-04-02 08:20] LABS: CALCIUM, SERUM 9.0 mg/dL (8.5-10.1); CREATININE 0.8 mg/dL (0.6-1.3); SODIUM SERUM 143.0 mmol/L (136-145); UREA NITROGEN, BLOOD 25.0 mg/dL (7-18)
[2025-04-02] MEDS: PANTOPRAZOLE 40 MG/PACK PACK NG SCH (08:52)
[2025-04-02] MEDS: POTASSIUM CHLORIDE 20 MEQ POWDER PACKET NG SCH (10:11)
[2025-04-02 12:00] VITALS: BP 99/64; TEMP 97.4; O2SAT 99
[2025-04-02 16:00] VITALS: BP 106/65; TEMP 97.3; O2SAT 100
[2025-04-02 20:00] VITALS: BP 106/63; TEMP 97.3; O2SAT 98
[2025-04-02] MEDS: VANCOMYCIN 1 GM in IV D5W 250ml IV SCH (21:07)
[2025-04-03] VITALS: BP 108/72; TEMP 97.8; O2SAT 99
[2025-04-03 04:00] VITALS: BP 115/74; TEMP 97.5; O2SAT 95
[2025-04-03 08:00] VITALS: BP 125/82; TEMP 97.2; O2SAT 95
[2025-04-03 09:14] LABS: PLATELET COUNT (AUTO) 147 K/uL (150-450); RED BLOOD CELL COUNT(AUTO) 3.82 MIL/uL (4.5-6.0); RED CELL DISTRIBUTION WIDTH 16.2 % (11.5-15.0); WHITE BLOOD COUNT (AUTO) 4.1 K/uL (4.3-11.0)
[2025-04-03] MEDS ORDERED: LEVO500T90 PO (10:04)
[2025-04-03 10:41] LABS: CALCIUM, SERUM 8.7 mg/dL (8.5-10.1); CREATININE 0.7 mg/dL (0.6-1.3); PHOSPHORUS 2.0 mg/dL (2.5-4.9); SODIUM SERUM 145.0 mmol/L (136-145); UREA NITROGEN, BLOOD 20.0 mg/dL (7-18)
[2025-04-03 12:00] VITALS: BP 117/71; TEMP 97.3; O2SAT 95
[2025-04-03] MEDS: NEUTRA PHOS 1 POWD.PACKET PO ONE (12:21)
[2025-04-03 12:22] VITALS: BP 128/63
== END 2025-04-03 14:17 | DRG 564 ==
LOC: ER 18:28 → TELE-TD 20:43 → TELE1 04-01 09:25 → MEDSG1 04-03 08:46
PROVIDERS: ATTEND Internal Medicine
DX: T87.89 Other complications of amputation stump (principal); A41.9 Sepsis, unspecified organism; G93.41 Metabolic encephalopathy; J15.69 Pneumonia due to other Gram-negative bacteria; J69.0 Pneumonitis due to inhalation of food and vomit; J96.01 Acute respiratory failure with hypoxia; I70.261 Atherosclerosis of native arteries of extremities with gangrene, right leg; I70.262 Atherosclerosis of native arteries of extremities with gangrene, left leg; R64 Cachexia; E11.52 Type 2 diabetes mellitus with diabetic peripheral angiopathy with gangrene; L89.156 Pressure-induced deep tissue damage of sacral region; N39.0 Urinary tract infection, site not specified; I13.0 Hypertensive heart and chronic kidney disease with heart failure and stage 1 through stage 4 chronic kidney disease, or unspecified chronic kidney disease; N18.9 Chronic kidney disease, unspecified; F01.50 Vascular dementia, unspecified severity, without behavioral disturbance, psychotic disturbance, mood disturbance, and anxiety; I50.22 Chronic systolic (congestive) heart failure; L97.429 Non-pressure chronic ulcer of left heel and midfoot with unspecified severity; D68.59 Other primary thrombophilia; Z66 Do not resuscitate; R13.10 Dysphagia, unspecified; E11.22 Type 2 diabetes mellitus with diabetic chronic kidney disease; E11.621 Type 2 diabetes mellitus with foot ulcer; Z20.822 Contact with and (suspected) exposure to COVID-19; E11.40 Type 2 diabetes mellitus with diabetic neuropathy, unspecified; E78.5 Hyperlipidemia, unspecified; I25.10 Atherosclerotic heart disease of native coronary artery without angina pectoris; Z86.73 Personal history of transient ischemic attack (TIA), and cerebral infarction without residual deficits; I25.2 Old myocardial infarction; Z79.01 Long term (current) use of anticoagulants; Z79.84 Long term (current) use of oral hypoglycemic drugs; Z79.899 Other long term (current) drug therapy; I48.91 Unspecified atrial fibrillation; Z74.09 Other reduced mobility; Z86.19 Personal history of other infectious and parasitic diseases; L97.514 Non-pressure chronic ulcer of other part of right foot with necrosis of bone; Z74.01 Bed confinement status; Z93.1 Gastrostomy status; L97.529 Non-pressure chronic ulcer of other part of left foot with unspecified severity; Y83.5 Amputation of limb(s) as the cause of abnormal reaction of the patient, or of later complication, without mention of misadventure at the time of the procedure; Y92.129 Unspecified place in nursing home as the place of occurrence of the external cause
CPT/HCPCS: 36415; 71045-TC; 80048-TC; 80076-TC; 80202-TC; 81001; 82533; 82962-TC; 83605-TC; 83735-TC; 83880; 84100-TC; 84443-TC; 84484-TC; 85025-TC; 85730-TC; 87040-TC; 87081-TC; 87086-TC; A4223; A6213; G0378; J1650; J1720; J1815; J2470; J2543; J3373; J3374; J3490; J7030; J7050; J7060

== ENCOUNTER 2025-04-23 09:47 | Inpatient (IN) | payer MEDICARE, OTHER ==
[~2025-04-23] VITALS: Ht 182.9 cm; Wt 79.4 kg
[~2025-04-23 09:47] MED LIST changes: +LEVO500T90 PO
[2025-04-23 10:36] LABS: PLATELET COUNT (AUTO) 188 K/uL (150-450); RED BLOOD CELL COUNT(AUTO) 3.96 MIL/uL (4.5-6.0); RED CELL DISTRIBUTION WIDTH 16.2 % (11.5-15.0); WHITE BLOOD COUNT (AUTO) 4.1 K/uL (4.3-11.0)
[2025-04-23] MEDS ORDERED: GLUC1KIT IM (10:41)
[2025-04-23] MEDS ORDERED: PANT40SU2 GT (10:41)
[2025-04-23] MEDS ORDERED: INSU500V SQ (10:41)
[2025-04-23] MEDS ORDERED: [UNRECOGNIZED DRUG - CODE] TP (10:41)
[2025-04-23 10:45] LABS: CALCIUM, SERUM 9.2 mg/dL (8.5-10.1); CREATININE 0.6 mg/dL (0.6-1.3); SODIUM SERUM 141.0 mmol/L (136-145); UREA NITROGEN, BLOOD 23.0 mg/dL (7-18)
[2025-04-23 10:54] LABS: INR 1.3 (0.91-1.10)
[2025-04-23 11:40] VITALS: BP 117/84; TEMP 97.7; O2SAT 98
[2025-04-23] MEDS ORDERED: Z GUARD REMEDY 4 OZ OINT TP PRN (17:00)
[2025-04-23] MEDS ORDERED: ONDANSETRON HCL/PF 4 MG/2 ML VIAL IVP PRN (17:00)
[2025-04-23] MEDS ORDERED: ACETAMINOPHEN 325 MG TABLET PO PRN (17:00)
[2025-04-23] MEDS: DILTIAZEM HCL 30 MG TABLET GT SCH (18:34)
[2025-04-23 22:11] VITALS: BP 108/72; TEMP 98.8; O2SAT 98
[2025-04-23] MEDS: ATORVASTATIN 40 MG TABLET GT SCH (22:47)
[2025-04-24] VITALS (24 sets, daily range): BP systolic 98–143; BP diastolic 67–88; TEMP 98–98.6; O2SAT 94–100
[2025-04-24] MEDS: IV NS 0.9% 1,000 ML BAG IV ONE (05:54)
[2025-04-24 06:55] LABS: PLATELET COUNT (AUTO) 154 K/uL (150-450); RED BLOOD CELL COUNT(AUTO) 3.59 MIL/uL (4.5-6.0); RED CELL DISTRIBUTION WIDTH 16.0 % (11.5-15.0); WHITE BLOOD COUNT (AUTO) 3.0 K/uL (4.3-11.0)
[2025-04-24 07:00] LABS: APPEARANCE,URINE CLEAR (CLEAR); BLOOD, URINE NEGATIVE Ery/uL (NEGATIVE); LEUKOCYTE ESTERASE ,URINE 3+ (NEGATIVE); NITRITE, URINE POSITIVE (NEGATIVE); UGLUCOSE NEGATIVE (NEGATIVE)
[2025-04-24] MEDS ORDERED: IODIXANOL 150 ML IV ONE (07:03)
[2025-04-24] MEDS ORDERED: LIDOCAINE HCL/MPF 1% 30 ML VIAL IJ ONE (07:03)
[2025-04-24 07:26] LABS: LDL 39.0 mg/dL (0-99)
[2025-04-24] MEDS: PANTOPRAZOLE 40 MG TABLET.DR PO SCH (07:30)
[2025-04-24] MEDS ORDERED: IV NS 0.9% 500 ML IV ONE (07:50)
[2025-04-24] MEDS ORDERED: IV SET PRIMARY PUMP SET 1 EA INFUS.SET MC ONE (07:50)
[2025-04-24] MEDS ORDERED: FENTANYL PF 100MCG/2ML AMPUL ONE (08:08)
[2025-04-24] MEDS ORDERED: IODIXANOL 320MG/ML 100 ML IV ONE (08:20)
[2025-04-24 08:25] LABS: ADD URINE CULTURE YES
[2025-04-24] MEDS ORDERED: HEPARIN SODIUM, PORCINE 1,000 UNIT/ML VIAL ONE (08:32)
[2025-04-24] MEDS ORDERED: HEPARIN SODIUM, PORCINE 5000 UNITS/1 ML VIAL ONE (08:32)
[2025-04-24] MEDS: METFORMIN 500 MG TABLET GT SCH (09:00)
[2025-04-24] MEDS: GABAPENTIN 100 MG CAPSULE PO SCH (09:00)
[2025-04-24] MEDS: CLOPIDOGREL BISULFATE 300 MG TABLET PO ONE (11:48)
[2025-04-24] MEDS: IV NS 0.9% 1,000 ML IV PRN (12:03)
[2025-04-24] MEDS ORDERED: ACETAMINOPHEN 650 MG/20.3 ML UDC GT PRN (12:30)
[2025-04-24] MEDS: GABAPENTIN 100 MG CAPSULE GT SCH (13:28)
[2025-04-24 15:09] LABS: CALCIUM, SERUM 8.9 mg/dL (8.5-10.1); CREATININE 0.6 mg/dL (0.6-1.3); PHOSPHORUS 3.5 mg/dL (2.5-4.9); SODIUM SERUM 140.0 mmol/L (136-145); UREA NITROGEN, BLOOD 21.0 mg/dL (7-18)
[2025-04-24] MEDS: GLUCERNA 1.2 1,000 ML BOTTLE NG PRN (17:27)
[2025-04-24] MEDS: APIXABAN 5 MG TABLET GT SCH (21:13)
[2025-04-25] VITALS: BP_SYST 112; BP_SYST 120; BP_DIAS 79; BP_DIAS 85; TEMP 97.9; TEMP 98; O2SAT 96
[2025-04-25 04:00] VITALS: BP 112/80; TEMP 97.9; O2SAT 100
[2025-04-25 06:28] LABS: PLATELET COUNT (AUTO) 175 K/uL (150-450); RED BLOOD CELL COUNT(AUTO) 3.66 MIL/uL (4.5-6.0); RED CELL DISTRIBUTION WIDTH 16.3 % (11.5-15.0); WHITE BLOOD COUNT (AUTO) 3.6 K/uL (4.3-11.0)
[2025-04-25 06:54] LABS: CALCIUM, SERUM 8.7 mg/dL (8.5-10.1); CREATININE 0.7 mg/dL (0.6-1.3); PHOSPHORUS 3.2 mg/dL (2.5-4.9); SODIUM SERUM 141.0 mmol/L (136-145); UREA NITROGEN, BLOOD 22.0 mg/dL (7-18)
[2025-04-25] MEDS ORDERED: APIXABAN 5 MG TABLET GT SCH (09:00)
[2025-04-25] MEDS: PANTOPRAZOLE 40 MG/PACK PACK GT SCH (09:12)
[2025-04-25] MEDS: CLOPIDOGREL BISULFATE 75 MG TABLET PO SCH (09:13)
[2025-04-25 10:59] VITALS: BP 113/71; TEMP 97.7; O2SAT 100
[2025-04-25] MEDS: SULFAMETH/TRIMETH 800/160 MG 1 UDTAB TABLET PO SCH (14:51)
[2025-04-25 20:00] VITALS: BP 96/72; TEMP 98.2; O2SAT 95
[2025-04-26] VITALS (7 sets, daily range): BP systolic 95–122; BP diastolic 55–77; TEMP 97.5–98.1; O2SAT 92–100
[2025-04-26 07:43] LABS: PLATELET COUNT (AUTO) 159 K/uL (150-450); RED BLOOD CELL COUNT(AUTO) 3.51 MIL/uL (4.5-6.0); RED CELL DISTRIBUTION WIDTH 16.1 % (11.5-15.0); WHITE BLOOD COUNT (AUTO) 3.4 K/uL (4.3-11.0)
[2025-04-26 07:58] LABS: CALCIUM, SERUM 8.9 mg/dL (8.5-10.1); CREATININE 0.8 mg/dL (0.6-1.3); SODIUM SERUM 142.0 mmol/L (136-145); UREA NITROGEN, BLOOD 20.0 mg/dL (7-18)
[2025-04-26] MEDS ORDERED: SULF1TAB48 PO (11:58)
[2025-04-26] MEDS ORDERED: CLOP75TA15 PO (11:58)
== END 2025-04-26 16:19 | DRG 252 ==
LOC: ER 09:52 → MED 10:48 → TELE 14:44 → ICU 04-24 11:10 → TELE 04-24 16:13
PROVIDERS: ADMIT Nurse Practitioner Acute Care; ATTEND Nurse Practitioner Acute Care
PROC: 047P3ZZ Dilation of Right Anterior Tibial Artery, Percutaneous Approach (ICD-10-PCS; principal; 2025-04-24)
PROC: 047M3Z1 Dilation of Right Popliteal Artery using Drug-Coated Balloon, Percutaneous Approach (ICD-10-PCS; 2025-04-24)
PROC: B410YZZ Fluoroscopy of Abdominal Aorta using Other Contrast (ICD-10-PCS; 2025-04-24)
PROC: B41FYZZ Fluoroscopy of Right Lower Extremity Arteries using Other Contrast (ICD-10-PCS; 2025-04-24)
DX: E11.52 Type 2 diabetes mellitus with diabetic peripheral angiopathy with gangrene (principal); G93.41 Metabolic encephalopathy; L89.96 Pressure-induced deep tissue damage of unspecified site; Z66 Do not resuscitate; D68.59 Other primary thrombophilia; L97.429 Non-pressure chronic ulcer of left heel and midfoot with unspecified severity; I13.0 Hypertensive heart and chronic kidney disease with heart failure and stage 1 through stage 4 chronic kidney disease, or unspecified chronic kidney disease; I50.22 Chronic systolic (congestive) heart failure; R13.10 Dysphagia, unspecified; N39.0 Urinary tract infection, site not specified; Z79.01 Long term (current) use of anticoagulants; B96.20 Unspecified Escherichia coli [E. coli] as the cause of diseases classified elsewhere; E11.621 Type 2 diabetes mellitus with foot ulcer; F01.50 Vascular dementia, unspecified severity, without behavioral disturbance, psychotic disturbance, mood disturbance, and anxiety; N18.9 Chronic kidney disease, unspecified; E78.5 Hyperlipidemia, unspecified; Z86.73 Personal history of transient ischemic attack (TIA), and cerebral infarction without residual deficits; Z93.1 Gastrostomy status; E11.22 Type 2 diabetes mellitus with diabetic chronic kidney disease; E11.40 Type 2 diabetes mellitus with diabetic neuropathy, unspecified; Z79.84 Long term (current) use of oral hypoglycemic drugs; Z79.4 Long term (current) use of insulin; Z79.899 Other long term (current) drug therapy; I25.2 Old myocardial infarction; K21.9 Gastro-esophageal reflux disease without esophagitis; I25.10 Atherosclerotic heart disease of native coronary artery without angina pectoris; I48.91 Unspecified atrial fibrillation; Z74.01 Bed confinement status
CPT/HCPCS: 36415; 71045-TC; 75625; 80048-TC; 80061-TC; 81001; 83735-TC; 84100-TC; 84443-TC; 85025-TC; 85730-TC; 86850-TC; 87081-TC; 87086-TC; 87186-TC; 93307-TC; A4223; A6213; G0378; J1644; J3010; J3490; J7030; J7040; J7050; Q9967